=== PATIENT | female | born 1945 | race Caucasian/White ===

== ENCOUNTER 2018-01-24 18:37 | Emergency (ER) | payer MEDICARE ==
[2018-01-24 20:23] LABS: ADD MAN DIFF? NO
[2018-01-24 20:24] LABS: BASO # 0.1 x10^3/uL (0.0-0.2); BASO % 1 % (0-3); EOS # 0.1 x10^3/uL (0.0-0.7); EOS % 1 % (0-3); HEMATOCRIT 40.7 % (36.0-47.0); HEMOGLOBIN 13.9 g/dL (12.0-15.5); LYMPH # 1.9 x10^3/uL (1.0-4.8); LYMPH % 24 % (24-48); MEAN CORPUSCULAR HEMOGLOBIN 30 pg (25-35); MEAN CORPUSCULAR HGB CONC 34 g/dL (31-37); MEAN CORPUSCULAR VOLUME 88 fL (79-100); MONO # 0.7 x10^3/uL (0.0-1.1); MONO % 9 % (0-9); NEUT # 5.2 x10^3uL (1.8-7.7); NEUT % 65 % (31-73); PLATELET COUNT 209 x10^3/uL (140-400); RED BLOOD COUNT 4.62 x10^6/uL (3.50-5.40); RED CELL DISTRIBUTION WIDTH 13.9 % (11.5-14.5)
[2018-01-24 20:36] LABS: ANION GAP 10 (6-14); BLOOD UREA NITROGEN 29 mg/dL (7-20); BUN/CREATININE RATIO 26 (6-20); CALCIUM 8.5 mg/dL (8.5-10.1); CARBON DIOXIDE 27 mmol/L (21-32); CHLORIDE 91 mmol/L (98-107); CREATININE 1.1 mg/dL (0.6-1.0); GFR 49.1; GLUCOSE 98 mg/dL (70-99); POTASSIUM 4.1 mmol/L (3.5-5.1); SODIUM 128 mmol/L (136-145)
[2018-01-24 20:42] LABS: ALBUMIN 3.6 g/dL (3.4-5.0); ALBUMIN/GLOBULIN RATIO 0.9 (1.0-1.7); ALK PHOS 78 U/L (46-116); ALT (SGPT) 46 U/L (14-59); AST (SGOT) 34 U/L (15-37); MAGNESIUM 2.3 mg/dL (1.8-2.4); TOTAL BILIRUBIN 0.5 mg/dL (0.2-1.0); TOTAL PROTEIN 7.5 g/dL (6.4-8.2)
[2018-01-24 20:44] LABS: TROPONINI < 0.017 ng/mL (0.000-0.055)
[2018-01-24 20:50] LABS: CKMB INDEX 1.8 % (0-4); CKMB MASS 1.3 ng/mL (0.0-3.6); CREATINE KINASE 72 U/L (26-192)
[2018-01-24] MEDS: IV NORMAL SALINE 1000ML BAG 1,000 ML IV (21:11)
== END 2018-01-24 22:15 | disposition home or self-care (01) ==
LOC: ER 18:37
DX: R55 Syncope and collapse (principal); E87.1 Hypo-osmolality and hyponatremia; R51 Headache; S30.0XXA Contusion of lower back and pelvis, initial encounter; I10 Essential (primary) hypertension; J44.9 Chronic obstructive pulmonary disease, unspecified; Z87.891 Personal history of nicotine dependence; Z88.8 Allergy status to other drugs, medicaments and biological substances; W18.09XA Striking against other object with subsequent fall, initial encounter; Y93.89 Activity, other specified; Y99.8 Other external cause status; Y92.090 Kitchen in other non-institutional residence as the place of occurrence of the external cause
CPT/HCPCS: 36415; 70450; 71045; 80053; 82553; 83735; 84484; 85025; 93005; 96360; 99285-25; J7030

== ENCOUNTER 2021-06-15 06:58 | Day surgery (SDC) | payer MEDICARE ==
[~2021-06-15] VITALS: Ht 177.8 cm; Wt 82.0 kg
[~2021-06-15 06:58] MED LIST: PROPOFOL 10 MG/ML (20ML) VIAL. IV ONE
[2021-06-15] MEDS ORDERED: LEVO112T49 PO (07:24)
[2021-06-15] MEDS ORDERED: LISI-130 PO (07:24)
[2021-06-15] MEDS ORDERED: SIMV20TA18 PO (07:24)
[2021-06-15] MEDS ORDERED: METO-313 PO (07:24)
[2021-06-15 07:27] VITALS: BP 160/78
[2021-06-15] MEDS: IV RINGERS,LACTATED 1000ML 1,000 ML IV ONE (07:30)
[2021-06-15 08:46] VITALS: BP 130/60
--- NOTE | 2021-06-15 08:56 | HP ---
DATE OF SERVICE: 06/15/2021 ADMIT DATE: 06/15/2021 UPDATED HISTORY AND PHYSICAL REASON FOR CONSULTATION: History of colon polyps. REFERRING PHYSICIAN: Dr. Lamar Valdez. HISTORY OF PRESENT ILLNESS: A 76-year-old female who has past medical history is significant for hypertension, hyperlipidemia, hypothyroidism, colonic polyps, seen for surveillance exam. Bowel habits are regular without diarrhea or constipation. Family history is negative for colon cancer and she is otherwise without additional complaints. PAST MEDICAL HISTORY: Hypertension, hypothyroidism and hyperlipidemia. ALLERGIES: BENADRYL. MEDICATIONS: Include levothyroxine, lisinopril, metoprolol, simvastatin. FAMILY HISTORY: Significant for breast cancer in the sister, CVAs with mother and sibling, diabetes in multiple family members and KS in multiple family members. PAST SURGICAL HISTORY: Significant for hip replacement. SOCIAL HISTORY: She is a social drinker, former smoker. REVIEW OF SYSTEMS: Per records. PHYSICAL EXAMINATION: GENERAL: Reveals a well-nourished, well-developed female. VITAL SIGNS: Temperature 97.7, pulse 69, respiratory rate 20. LUNGS: Clear. CARDIOVASCULAR: Reveals an S1, S2, without S3, S4 or appreciable murmur. ABDOMEN: With a soft abdomen, normal bowel sounds without appreciable hepatosplenomegaly. EXTREMITIES: Reveal no cyanosis, clubbing or edema. IMPRESSION AND PLAN: History of colonic polyps. Surveillance exam is recommended at this time. Risks and benefits of procedure including risk of perforation with operation were discussed. The patient is willing to proceed. MARTELL DR: Ce TID: [id number]
== END 2021-06-15 09:00 | disposition home or self-care (01) ==
LOC: SURG 06:58
PROVIDERS: ATTEND Internal Medicine Gastroenterology
DX: Z12.11 Encounter for screening for malignant neoplasm of colon (principal); K64.0 First degree hemorrhoids; K57.30 Diverticulosis of large intestine without perforation or abscess without bleeding; K63.89 Other specified diseases of intestine; E03.9 Hypothyroidism, unspecified; E78.00 Pure hypercholesterolemia, unspecified; J44.9 Chronic obstructive pulmonary disease, unspecified; M19.90 Unspecified osteoarthritis, unspecified site; I10 Essential (primary) hypertension; Z86.010 Personal history of colon polyps; Z79.899 Other long term (current) drug therapy; Z98.890 Other specified postprocedural states; Z88.8 Allergy status to other drugs, medicaments and biological substances; Z87.891 Personal history of nicotine dependence; Z82.49 Family history of ischemic heart disease and other diseases of the circulatory system; Z80.3 Family history of malignant neoplasm of breast; Z83.3 Family history of diabetes mellitus
CPT/HCPCS: 45378; G0105; J2704